=== PATIENT | female | born 1945 | race Two or more races ===

== ENCOUNTER 2021-08-16 13:40 | Emergency (ER) | payer OTHER ==
[~2021-08-16] VITALS: Ht 149.9 cm; Wt 50.8 kg
[2021-08-16] MEDS ORDERED: NORVASC2.5 MG PO (14:31)
[2021-08-16] MEDS ORDERED: ROSUVASTATIN CA20 MG PO (14:31)
[2021-08-16] MEDS ORDERED: GLIMEPIRIDE1 M1 PO (14:31)
[2021-08-16] MEDS ORDERED: LOSARTAN POTAS100 MG PO (14:31)
[2021-08-16] MEDS ORDERED: SYNTHROID75 MCG PO (14:31)
[2021-08-16] MEDS ORDERED: ANORO ELLIPTA1 EACH (14:32)
== END 2021-08-16 20:52 | disposition home or self-care (01) ==
LOC: ER 13:40
DX: B34.9 Viral infection, unspecified (principal); Z11.52 Encounter for screening for COVID-19